=== PATIENT | female | born 1945 | race African-American/Black ===

== ENCOUNTER 2016-10-01 07:02 | Day surgery (SDC) | payer OTHER ==
--- NOTE | ~2016-10-01 | EGD ---
EGD REPORT [facility] [address] [address] NAME: JU MACHADO : [birth year] STATUS : [place] [facility] [place] PAT#: [id number] AGE: 71 ADM/REG DATE : 10/01/16 MR#: [id number] REPORT SERV DATE: 10/01/16 DICTATED BY: LUCY MARTINEZ DATE: 10/01/16 REPORT STATUS : Draft [facility]ANS[facility]IBED BY: [facility] DATE: 10/01/16 Endoscopy Center Patient Name: Ju Machado Date of : 1945 Attending MD: LUCY MARTINEZ, Procedure Date No Time: 10/01/2016 Procedure: Upper EUS Indications: Gastric deformity on endoscopy/Subepithelial tumor versus extrinsic compression Referring MD: ROMÁN MCLAIN MD, CARLOS SOMMER MD Medicines: Monitored Anesthesia Care Complications: No immediate complications. Estimated blood loss: None. Procedure: Pre-Anesthesia Assessment: - ASA Grade Assessment: III - A patient with severe systemic disease. After obtaining informed consent, the endoscope was passed under direct vision. Throughout the procedure, the patient's blood pressure, pulse, and oxygen saturations were monitored continuously. The GIF [id number] was introduced through the mouth, and advanced to the second part of duodenum. The Endoscope was introduced through the mouth, and advanced to the second part of duodenum. Findings: Endoscopic Finding : The examined esophagus was endoscopically normal. A single small papule (nodule) with no bleeding and no stigmata of recent bleeding was found in the gastric body. The exam of the stomach was otherwise normal. The cardia and gastric fundus were normal on retroflexion. The examined duodenum was endoscopically normal. Endosonographic Finding : A round intramural (subepithelial) lesion was found in the greater curve of the stomach and in the body of the stomach. The lesion was hypoechoic. Sonographically, the lesion appeared to originate from the muscularis propria (Layer 4). The lesion measured 10 mm (in maximum thickness). The lesion also measured 6 mm in diameter. The outer endosonographic borders were well defined. Fine needle aspiration was performed. Color Doppler imaging was utilized prior to needle puncture to confirm a lack of significant vascular structures within the needle path. Six passes were made with the 22 gauge needle using a transgastric approach. No stylet was used. Final cytology results are pending. There was no sign of significant endosonographic abnormality in the entire pancreas. The pancreas was well visualized, no masses, no EGD REPORT [address] [address] NAME: JU MACHADO : [birth year] STATUS : REG [facility] [place] PAT#: [id number] AGE: 71 ADM/REG DATE : 10/01/16 MR#: [id number] REPORT SERV DATE: 10/01/16 DICTATED BY: LUCY MARTINEZ DATE: 10/01/16 REPORT STATUS : Draft TRANSCRIBED BY: [employer] DATE: 10/01/16 calcifications, the pancreatic duct was well visualized from ampulla to tail, the pancreatic duct was regular in contour. There was no sign of significant endosonographic abnormality in the common bile duct. There was no sign of significant endosonographic abnormality in the examined duodenum. No lymphadenopathy seen. There was no sign of significant endosonographic abnormality in the esophagus. Impression: - Normal esophagus. - A single small papule (nodule) with no bleeding and no stigmata of recent bleeding was found in the stomach. - Normal examined duodenum. - An intramural (subepithelial) lesion was found in the greater curve of the stomach and in the body of the stomach. The lesion appeared to originate from within the muscularis propria (Layer 4). The diagnosis is a stromal cell (smooth muscle) neoplasm. - There was no sign of significant pathology in the entire pancreas. - There was no sign of significant pathology in the common bile duct. - There was no sign of significant pathology in the examined duodenum. - There was no sign of significant pathology in the esophagus. Recommendation: - Return to previous diet. - Continue present medications. - Await cytology results. - Return to referring physician. - Repeat the upper endoscopic ultrasound in 1 year for surveillance. Procedure Code(s): --- Professional --- 22217, Esophagogastroduodenoscopy, flexible, transoral; with transendoscopic ultrasound-guided intramural or transmural fine needle aspiration/biopsy(s) (includes endoscopic ultrasound examination of the esophagus, stomach, and either the duodenum or a surgically altered stomach where the jejunum is examined distal to the anastomosis) Diagnosis Code(s): --- Professional --- K31.9, Disease of stomach and duodenum, unspecified D49.0, Neoplasm of unspecified behavior of digestive EGD REPORT [facility] [address] [place]. [address] NAME: JU MACHADO : [birth year] STATUS : REG [facility] [place] PAT#: [id number] AGE: 71 ADM/REG DATE : 10/01/16 MR#: [id number] REPORT SERV DATE: 10/01/16 DICTATED BY: LUCY MARTINEZ DATE: 10/01/16 REPORT STATUS : Draft TRANSCRIBED BY: [employer] DATE: 10/01/16 system CPT copyright 2013 [employer]. All rights reserved. The codes documented in this report are preliminary and upon certified financial planner review may be revised to meet current compliance requirements. LUCY MARTINEZ, 10/01/2016 9:34 AM Number of Addenda: 0 Note Initiated On: 10/01/2016 8:[address] [place], [place] [address] [address]
[~2016-10-01 07:02] MED LIST: APRES10B PO; ASABAYER PO; CALTRA600D PO; CELEBREX2 PO; COREG12 PO; COREG25 PO; COZAAR100 MG PO; FORTAMET500 MG PO; KDUR10 PO; LORT7 PO; LOZOLTAB PO; MULTIPLE VIT PO; NEUR600 PO; NORCO1 TA2 PO; NORV5 PO; NTG150 SL; PLAVIX PO; PREM625 PO; PROTONIX PO; SUCR PO; ULTRAM50 PO; VITAMIN B-121000 MC1 PO; ZANTAC150 MG PO; ZOCOR20 PO; ZYRTEC ALLGY10 MG PO
[2016-10-01 07:38] LABS: BUN (BLOOD UREA NITROGEN) 17 MG/DL (6-23); CALCIUM, SERUM 9.3 MG/DL (8.5-10.4); CHLORIDE, SERUM 102 MMOL/L (96-112); CO2 (CARBON DIOXIDE) 29 MMOL/L (24-34); CREATININE 1.15 MG/DL (0.55-1.02); GFR AFRICAN AMERICAN 56 ML/MIN (>=60); GFR NON AFRICAN AMERICAN 48 ML/MIN (>=60); POTASSIUM, SERUM 4.1 MMOL/L (3.5-5.3); SODIUM, SERUM 140 MMOL/L (135-148)
[2016-10-01 07:39] LABS: GLUCOSE, SERUM 145 MG/DL (60-99)
== END 2016-10-01 23:59 | disposition home or self-care (01) ==
LOC: DMU 07:02
PROVIDERS: Anesthesiology; Internal Medicine Gastroenterology
PROC: BD42ZZZ Ultrasonography of Stomach (ICD-10-PCS; 2016-10-01)
PROC: 0D968ZX Drainage of Stomach, Via Natural or Artificial Opening Endoscopic, Diagnostic (ICD-10-PCS; principal; 2016-10-01 09:00)
DX: C49.A2 Gastrointestinal stromal tumor of stomach (principal); K31.9 Disease of stomach and duodenum, unspecified; K21.9 Gastro-esophageal reflux disease without esophagitis; I25.10 Atherosclerotic heart disease of native coronary artery without angina pectoris; E78.00 Pure hypercholesterolemia, unspecified; M19.90 Unspecified osteoarthritis, unspecified site; F17.210 Nicotine dependence, cigarettes, uncomplicated; Z95.5 Presence of coronary angioplasty implant and graft; Z79.82 Long term (current) use of aspirin; Z79.02 Long term (current) use of antithrombotics/antiplatelets; Z79.84 Long term (current) use of oral hypoglycemic drugs; Z79.899 Other long term (current) drug therapy; Z98.41 Cataract extraction status, right eye; Z98.42 Cataract extraction status, left eye; Z96.1 Presence of intraocular lens; Z96.653 Presence of artificial knee joint, bilateral; Z90.710 Acquired absence of both cervix and uterus; Z98.890 Other specified postprocedural states
CPT/HCPCS: 80048; 88305; 88341; 88342; C1725